=== PATIENT | male | born 1965 | race Caucasian/White ===

== ENCOUNTER 2017-04-17 10:15 | Emergency (ER) | payer MEDICAID ==
[~2017-04-17] VITALS: Ht 170.2 cm; Wt 118.8 kg
[~2017-04-17 10:15] MED LIST: Z.0.NO CURRENT MEDS
[2017-04-17 10:25] VITALS: BP 142/86; PULSE 73; RESP 16; TEMP 98.4; O2SAT 98
[2017-04-17] MEDS ORDERED: CLINDAMYCIN INJ 600 MG in SODIUM CHLORIDE 0.9% INJ 100 ML IV ONE (11:00)
[2017-04-17] MEDS ORDERED: MORPHINE SULFATE 4 MG/ML INJ IV PUSH ONE (11:00)
--- NOTE | 2017-04-17 11:06 | PD ---
HPI Chief Complaint: ENT Complaint Time Seen by Provider: 10:51 Travel History International Travel<30 days: No Contact w/Intl Traveler<30days: No Traveled to known affect area: No History of Present Illness HPI 51yo M with c/o pain and swelling in left face and around left eye for 2 days. States it started with pain in left upper tooth and then radiated to left face. States he woke up this morning and left eye seems more blurry. Denies any fever, drooling, sob, throat pain, n/v, abdominal pain. Pt states he is eating and drinking normally. Pt does not have a PMD. PFSH Past Medical History Arthritis: No Asthma: No Autoimmune Disease: No Blood Disorders: No Heart Rhythm Problems: No Cancer: No Cardiovascular Problems: No High Cholesterol: No Chemotherapy: No Chest Pain: No Congestive Heart Failure: No COPD: No Cerebrovascular Accident: No Diabetes: No Diminished Hearing: No Endocrine: No Gastrointestinal Disorders: No GERD: No Glaucoma: No Genitourinary: No Headaches: No Hepatitis: No Hiatal Hernia: No Hypertension: Yes Immune Disorder: No Implanted Vascular Access Dvce: No Kidney Stones: No Musculoskeletal: No Neurologic: No Psychiatric: No Reproductive: No Respiratory: No Migraines: No Myocardial Infarction: No Radiation Therapy: No Renal Failure: No Seizures: No Sleep Apnea: No Thyroid Disease: No Ulcer: No Tetanus Vaccination: Unknown Past Surgical History Abdominal Surgery: No AICD: No Appendectomy: No Arteriovenous Shunt: No Body Medical Devices: STEEL PLATE IN R UPPER ARM Cardiac Surgery: No Cholecystectomy: No Ear Surgery: No Endocrine Surgery: No Eye Surgery: No Genitourinary Surgery: No Gynecologic Surgery: No Insulin Pump: No Joint Replacement: No Neurologic Surgery: No Oral Surgery: No Pacemaker: Yes Thoracic Surgery: No Other Surgery: Yes Social History Alcohol Use: Yes (occ.) Tobacco Use: No Substance Use: No Allergies-Medications (Allergen,Severity, Reaction): Coded Allergies: Mushroom (Verified Allergy, Severe, HIVES,SOB, 04/17/17) Reported Meds & Prescriptions Reported Meds & Active Scripts Active No Active Prescriptions or Reported Medications Review of Systems Except as stated in HPI: all other systems reviewed are Neg Physical Exam Narrative GENERAL: 51yo M in mild distress. SKIN: Focused skin assessment warm/dry. HEAD: Atraumatic. Normocephalic. EYES: Pupils equal and round at 3mm bilaterally. EOMI. No pain with pain movement. +Edema and ttp left periorbital region. +TTP, erythema and swelling in left maxilla. ENT: Mouth: +Fractured tooth in tooth # 12 and ttp. Appeared to be chronically fractured. No apical fluctuance. No trismus. No malocclusion. Throat: Clear. NECK: Trachea midline. No JVD. CARDIOVASCULAR: Regular rate and rhythm. No murmur appreciated. RESPIRATORY: No accessory muscle use. Clear to auscultation. Breath sounds equal bilaterally. GASTROINTESTINAL: Abdomen soft, non-tender, nondistended. MUSCULOSKELETAL: No obvious deformities. No clubbing. No cyanosis. No edema. NEUROLOGICAL: Awake and alert. No obvious cranial nerve deficits. Motor grossly within normal limits. Normal speech. PSYCHIATRIC: Appropriate mood and affect; insight and judgment normal. Data Data Last Documented VS Vital Signs Date Time Temp Pulse Resp B/P Pulse Ox O2 Delivery O2 Flow Rate FiO2 04/17/17 10:25 98.4 73 16 142/86 98 Orders Complete Blood Count With Diff (04/17/17 10:57) Basic Metabolic Panel (Bmp) (04/17/17 10:57) Lactic Acid Sepsis Protocol (04/17/17 10:57) Blood Culture (04/17/17 10:57) Ct Facial Bones W Iv Contrast (04/17/17 ) Clindamycin Inj (Cleocin Inj) (04/17/17 11:00) Morphine Inj (Morphine Inj) (04/17/17 11:00) Iohexol 350 Inj (Omnipaque 350 Inj) (04/17/17 11:26) Ketorolac Inj (Toradol Inj) (04/17/17 12:45) Labs Laboratory Tests Test 04/17/17 11:10 White Blood Count 6.8 TH/MM3 Red Blood Count 4.16 MIL/MM3 Hemoglobin 12.7 GM/DL Hematocrit 37.3 % Mean Corpuscular Volume 89.9 FL Mean Corpuscular Hemoglobin 30.5 PG Mean Corpuscular Hemoglobin 33.9 % Concent Red Cell Distribution Width 12.2 % Platelet Count 196 TH/MM3 Mean Platelet Volume 7.5 FL Neutrophils (%) (Auto) 59.6 % Lymphocytes (%) (Auto) 22.7 % Monocytes (%) (Auto) 12.4 % Eosinophils (%) (Auto) 4.5 % Basophils (%) (Auto) 0.8 % Neutrophils # (Auto) 4.1 TH/MM3 Lymphocytes # (Auto) 1.5 TH/MM3 Monocytes # (Auto) 0.8 TH/MM3 Eosinophils # (Auto) 0.3 TH/MM3 Basophils # (Auto) 0.1 TH/MM3 CBC Comment DIFF FINAL Differential Comment Sodium Level 143 MEQ/L Potassium Level 4.1 MEQ/L Chloride Level 107 MEQ/L Carbon Dioxide Level 28.3 MEQ/L Anion Gap 8 MEQ/L Blood Urea Nitrogen 14 MG/DL Creatinine 0.94 MG/DL Estimat Glomerular Filtration 85 ML/MIN Rate Random Glucose 84 MG/DL Lactic Acid Level 1.1 mmol/L Calcium Level 8.5 MG/DL MDM Medical Decision Making Medical Screen Exam Complete: Yes Emergency Medical Condition: Yes Interpretation(s) Laboratory Tests Test 04/17/17 11:10 White Blood Count 6.8 TH/MM3 (4.0-11.0) Red Blood Count 4.16 MIL/MM3 (4.50-5.90) Hemoglobin 12.7 GM/DL (13.0-17.0) Hematocrit 37.3 % (39.0-51.0) Mean Corpuscular Volume 89.9 FL (80.0-100.0) Mean Corpuscular Hemoglobin 30.5 PG (27.0-34.0) Mean Corpuscular Hemoglobin 33.9 % Concent (32.0-36.0) Red Cell Distribution Width 12.2 % (11.6-17.2) Platelet Count 196 TH/MM3 (150-450) Mean Platelet Volume 7.5 FL (7.0-11.0) Neutrophils (%) (Auto) 59.6 % (16.0-70.0) Lymphocytes (%) (Auto) 22.7 % (9.0-44.0) Monocytes (%) (Auto) 12.4 % (0.0-8.0) Eosinophils (%) (Auto) 4.5 % (0.0-4.0) Basophils (%) (Auto) 0.8 % (0.0-2.0) Neutrophils # (Auto) 4.1 TH/MM3 (1.8-7.7) Lymphocytes # (Auto) 1.5 TH/MM3 (1.0-4.8) Monocytes # (Auto) 0.8 TH/MM3 (0-0.9) Eosinophils # (Auto) 0.3 TH/MM3 (0-0.4) Basophils # (Auto) 0.1 TH/MM3 (0-0.2) CBC Comment DIFF FINAL Differential Comment Sodium Level 143 MEQ/L (136-145) Potassium Level 4.1 MEQ/L (3.5-5.1) Chloride Level 107 MEQ/L (98-107) Carbon Dioxide Level 28.3 MEQ/L (21.0-32.0) Anion Gap 8 MEQ/L (5-15) Blood Urea Nitrogen 14 MG/DL (7-18) Creatinine 0.94 MG/DL (0.60-1.30) Estimat Glomerular Filtration 85 ML/MIN (>89) Rate Random Glucose 84 MG/DL (74-106) Lactic Acid Level 1.1 mmol/L (0.4-2.0) Calcium Level 8.5 MG/DL (8.5-10.1) Vital Signs Date Time Temp Pulse Resp B/P Pulse Ox O2 Delivery O2 Flow Rate FiO2 04/17/17 10:25 98.4 73 16 142/86 [address] 04/17/17 0000 Signed Impressions: Service Date/Time: Monday, April 17, 2017 11:07 - CONCLUSION: Mild left periorbital and infraorbital soft tissue swelling. The specific cause for this finding is not identified. However, the left lacrimal gland is larger than the right which could indicate dacryoadenitis. Wyatt Iraheta MD Differential Diagnosis Periorbital cellulitis vs. orbital cellulitis vs. abscess vs. sinusitis Narrative Course 51yo M with dental pain that radiated to left face and left periorbital region. Pt currently has swelling, redness and pain in left periorbital region but no pain with eye movement. Labs reviewed, no leukocytosis. Lactic acid normal at 1.1. CT facial with contrast showed mild left periorbital and infraorbital soft tissue swelling. Pt given morphine and toradol for pain. He was given clindamycin IV. Pt states pain has improved and is nontoxic appearing. Pt tolerating PO so can try outpatient treatment. Return precautions given. Diagnosis Primary Impression: Periorbital cellulitis of left eye Patient Instructions: General Instructions Departure Forms: Tests/Procedures Additional Instructions: Please follow up with your [facility] clinic in 2-3 days. Please follow up with outpatient dentist. Return to the ED if symptoms worsen. Med/Other Pt SpecificInfo: Prescription(s) given Scripts Hydrocodone-Acetaminophen (Lortab)5-325 Mg Tab1 Tab PO Q6H PRN (PAIN) #7 TAB Ref 0 Prov:Rianna Hager DO 04/17/17 Clindamycin 300 Mg [id number] Mg PO TID 10 Days Ref 0 Prov:Rianna Hager DO 04/17/17 Disposition: 01 DISCHARGE HOME Condition: Stable Rianna Hager DO Apr 17, 2017 11:05
[2017-04-17 11:20] LABS: AUTOMATED NEUTROPHIL # 4.1 TH/MM3 (1.8-7.7); BASOPHIL # 0.1 TH/MM3 (0-0.2); BASOPHIL % 0.8 % (0.0-2.0); EOSINOPHIL # 0.3 TH/MM3 (0-0.4); EOSINOPHIL % 4.5 % (0.0-4.0); HEMATOCRIT 37.3 % (39.0-51.0); HEMO FLAGS DIFF FINAL; LYMPH % 22.7 % (9.0-44.0); LYMPHOCYTE # 1.5 TH/MM3 (1.0-4.8); MEAN CELL VOLUME 89.9 FL (80.0-100.0); MEAN CORPUSCULAR HEMOGLOBIN 30.5 PG (27.0-34.0); MEAN CORPUSCULAR HGB CONC 33.9 % (32.0-36.0); MONO % 12.4 % (0.0-8.0); NEUT % 59.6 % (16.0-70.0); PLATELET COUNT 196 TH/MM3 (150-450); RED BLOOD COUNT 4.16 MIL/MM3 (4.50-5.90); RED CELL DISTRIBUTION WIDTH 12.2 % (11.6-17.2); WHITE BLOOD COUNT 6.8 TH/MM3 (4.0-11.0)
[2017-04-17] MEDS ORDERED: IOHEXOL 350 MG/ML 10 ML VIAL (for RAD DIAG) IV ONE (11:26)
[2017-04-17 11:28] LABS: POTASSIUM 4.1 MEQ/L (3.5-5.1)
[2017-04-17 11:31] LABS: BICARBONATE 28.3 MEQ/L (21.0-32.0)
--- NOTE | 2017-04-17 11:46 | RADRPT ---
EXAM DATE/TIME: 04/17/2017 11:07 [facility] COMPARISON: No previous studies available for comparison. INDICATIONS : Left periorbital and maxilla swelling and pain. IV CONTRAST: 95 cc Omnipaque 350 (iohexol) IV RADIATION DOSE: 29.96 CTDIvol (mGy) MEDICAL HISTORY : Cardiovascular disease. Hypertension. SURGICAL HISTORY : Pacemaker. ENCOUNTER: Initial ACUITY: 2 days PAIN SCALE: 5/10 LOCATION: Left facial TECHNIQUE: Volumetric scanning of the facial bones was performed. Using automated exposure control and adjustme nt of the mA and/or kV according to patient size, radiation dose was kept as low as reasonably achiev able to obtain optimal diagnostic quality images. DICOM format image data is available electronicall y for review and comparison. FINDINGS: ORBITS: The retroconal structures have a normal configuration. No radiopaque foreign bodies are seen. The le nses are normally located. There is left periorbital and infraorbital soft tissue swelling. The left lacrimal gland is larger than the right. NASAL BONE: The nasal bones and maxillary spine are intact. ZYGOMATIC ARCHES: Symmetric without evidence of fracture. SINUSES: There is minimal maxillary antral mucoperiosteal thickening bilaterally. Otherwise, the ethmoid, and frontal sinuses are clear. No air-fluid levels seen. NASAL CAVITY: The nasal septum is intact and midline. The lacrimal ducts are intact. SOFT TISSUES: No radiopaque foreign bodies seen. There is mild left periorbital and infraorbital soft tissue swelli ng. INTRACRANIAL: No acute intracranial abnormality is seen. OTHER: The mandible and pterygoid plates are intact. CONCLUSION: Mild left periorbital and infraorbital soft tissue swelling. The specific cause for this finding is n ot identified. However, the left lacrimal gland is larger than the right which could indicate dacryoa denitis. Wyatt Iraheta MD on April 17, 2017 at 11:38 Board Certified Radiologist. This report was verified electronically.
[2017-04-17] MEDS ORDERED: KETOROLAC TROMETHAMINE 30 MG/ML (IVP) VIAL IV PUSH ONE (12:45)
[2017-04-17] MEDS ORDERED: HYDR-3533 PO (12:49)
[2017-04-17] MEDS ORDERED: CLIN1CAP6 PO (12:49)
[2017-04-17 13:03] VITALS: BP 123/75
== END 2017-04-17 13:09 | disposition home or self-care (01) ==
LOC: PHED 10:15
DX: L03.213 Periorbital cellulitis (principal); I10 Essential (primary) hypertension
CPT/HCPCS: 70487; 80048; 83605; 85025; 87040; 96365; 96375; 99285; J1885; J2270; Q9967

== ENCOUNTER 2017-06-05 10:38 | Emergency (ER) | payer MEDICAID ==
[~2017-06-05] VITALS: Ht 170.2 cm; Wt 120.0 kg
[~2017-06-05 10:38] MED LIST changes: +CLIN1CAP6 PO; +HYDR-3533 PO; -Z.0.NO CURRENT MEDS
[2017-06-05 10:47] VITALS: BP 123/79; PULSE 93; RESP 18; TEMP 97.4; O2SAT 98
[2017-06-05] MEDS ORDERED: TETANUS/DIPHTHERIA TOXOID ADULT 0.5 ML VIAL IM ONE (11:15)
--- NOTE | 2017-06-05 11:19 | PD ---
HPI Chief Complaint: Fall Time Seen by Provider: 10:58 Travel History International Travel<30 days: No Contact w/Intl Traveler<30days: No Traveled to known affect area: No History of Present Illness HPI This patient complains of injuries from a fall. Duration one hour ago. He was standing on a ladder he says about 6 feet up and the ladder kicked out from underneath him and he fell. He complains of pain in the right elbow and left calf area. He's been ambulatory since. He is not having any pain in his head or neck or back or chest or abdomen. Severity of symptoms is moderate. He suffered a laceration to the left fourth finger. No alleviating factors. Pain is made worse moving his left lower leg. No LOC. PFSH Past Medical History Arthritis: No Asthma: No Autoimmune Disease: No Blood Disorders: No Heart Rhythm Problems: No Cancer: No Cardiovascular Problems: No High Cholesterol: No Chemotherapy: No Chest Pain: No Congestive Heart Failure: No COPD: No Cerebrovascular Accident: No Diabetes: No Diminished Hearing: No Endocrine: No Gastrointestinal Disorders: No GERD: No Glaucoma: No Genitourinary: No Headaches: No Hepatitis: No Hiatal Hernia: No Hypertension: Yes Immune Disorder: No Implanted Vascular Access Dvce: No Kidney Stones: No Musculoskeletal: No Neurologic: No Psychiatric: No Reproductive: No Respiratory: No Immunizations Current: Yes Migraines: No Myocardial Infarction: No Radiation Therapy: No Renal Failure: No Seizures: No Sleep Apnea: No Thyroid Disease: No Ulcer: No Tetanus Vaccination: Unknown Influenza Vaccination: No ?: Not Past Surgical History Abdominal Surgery: No AICD: No Appendectomy: No Arteriovenous Shunt: No Body Medical Devices: STEEL PLATE IN R UPPER ARM Cardiac Surgery: No Cholecystectomy: No Ear Surgery: No Endocrine Surgery: No Eye Surgery: No Genitourinary Surgery: No Gynecologic Surgery: No Insulin Pump: No Joint Replacement: No Neurologic Surgery: No Oral Surgery: No Pacemaker: Yes Thoracic Surgery: No Other Surgery: Yes Social History Alcohol Use: Yes (occ.) Tobacco Use: No Substance Use: No Allergies-Medications (Allergen,Severity, Reaction): Coded Allergies: mushroom (Unverified Allergy, Severe, HIVES,SOB, 06/05/17) Reported Meds & Prescriptions Reported Meds & Active Scripts Active No Active Prescriptions or Reported Medications Review of Systems General / Constitutional: No: Fever Eyes: No: Visual changes HENT: No: Headaches Cardiovascular: No: Chest Pain or Discomfort Respiratory: No: Shortness of Breath Gastrointestinal: No: Abdominal Pain Genitourinary: No: Dysuria Musculoskeletal: Positive: Myalgias, Pain Skin: No Rash Neurologic: No: Weakness Psychiatric: No: Depression Endocrine: No: Polydipsia Hematologic/Lymphatic: No: Easy Bruising Physical Exam Narrative GENERAL: Well-nourished, well-developed patient in no apparent distress. SKIN: Focused skin assessment reveals no rash and nodules. Skin is Warm and dry. HEAD: Atraumatic. Normocephalic. EYES: Pupils equal and round. No scleral icterus. No injection or drainage. ENT: No nasal bleeding or discharge. Mucous membranes pink and moist. NECK: Trachea midline. No JVD. No midline tenderness CARDIOVASCULAR: Regular rate and rhythm. No murmur appreciated. RESPIRATORY: No accessory muscle use. Clear to auscultation. Breath sounds equal bilaterally. GASTROINTESTINAL: Abdomen soft, obese, non-tender, nondistended. Hepatic and splenic margins not palpable. MUSCULOSKELETAL: No obvious deformities. No clubbing. No cyanosis. No edema. Patient has an abrasion and tenderness to the right elbow. There is tenderness to the left calf. No bruising or wound there. He has a laceration approximately 3 cm long to the left fourth finger near the webspace. Sensation and cap refill are intact in that finger. He has good flexion and extension strength there. NEUROLOGICAL: but no Awake and alert. No obvious cranial nerve deficits. Motor grossly within normal limits. Normal speech. PSYCHIATRIC: Appropriate mood and affect; insight and judgment normal. Data Data Last Documented VS Vital Signs Date Time Temp Pulse Resp B/P (MAP) Pulse Ox O2 Delivery O2 Flow Rate FiO2 06/05/17 10:47 97.4 93 18 123/79 (94) 98 Orders Orders Tetanus/Diphtheria Tox Adult (Tetanus/Di (06/05/17 11:15) Elbow, Complete (4 Vws) (06/05/17 ) Tibia/Fibula (Ap/Lat) (06/05/17 ) Lidocaine 1% Inj (50 Ml) (Xylocaine 1% I (06/05/17 11:30) MDM Medical Decision Making Medical Screen Exam Complete: Yes Emergency Medical Condition: Yes Medical Record Reviewed: Yes Differential Diagnosis Elbow fracture, tibia fracture, laceration Narrative Course I have reviewed the patient's electronic medical record. I reviewed his right elbow x-rays which are normal I reviewed his left tibia x-rays which are normal PA Deanne is repairing the laceration Tetanus booster given He is neurologically intact. No indication for head or neck imaging. These injuries are not considered distracting injury. He may have a muscular injury to the left calf. He should ice and elevate and rest it. Should follow-up with primary care. Diagnosis Primary Impression: Fall on and from ladder, initial encounter Additional Impressions: Multiple contusions Laceration of hand, left Qualified Codes: S61.412A - Laceration without foreign body of left hand, initial encounter Pain of left calf Additional Instructions: The patient was advised to follow up with their physician and return if they worsen. Ice and elevate left calf Med/Other Pt SpecificInfo: Other Scripts No Active Prescriptions or Reported Meds Disposition: 01 DISCHARGE HOME Condition: Stable Dima Rashid MD Jun 05, 2017 11:19
[2017-06-05] MEDS ORDERED: LIDOCAINE HCL 1% 50 ML VIAL INFIL ONE (11:30)
--- NOTE | 2017-06-05 11:54 | RADRPT ---
EXAM DATE/TIME: 06/05/2017 11:45 [facility] COMPARISON: TIBIA/FIBULA LEFT (AP/LAT), June 05, 2017, 11:43. INDICATIONS : Fall from ladder today, right elbow pain. MEDICAL HISTORY : None. SURGICAL HISTORY : None. ENCOUNTER: Initial ACUITY: 1 day PAIN SCORE: 2/10 LOCATION: Right elbow FINDINGS: Multiple view examination of the right elbow demonstrates no soft tissue swelling, joint effusion, or fracture. The osseous structures are in normal alignment. Bony mineralization is normal. CONCLUSION: 1. Negative examination. Hank Laboy MD on June 05, 2017 at 11:51 Board Certified Radiologist. This report was verified electronically.
--- NOTE | 2017-06-05 12:16 | RADRPT ---
EXAM DATE/TIME: 06/05/2017 11:43 [facility] COMPARISON: No previous studies available for comparison. INDICATIONS : Fall from ladder today, left lower leg pain. MEDICAL HISTORY : None. SURGICAL HISTORY : None. ENCOUNTER: Initial ACUITY: 1 day PAIN SCORE: 8/10 LOCATION: Left posterior tibia FINDINGS: Two view examination of the left tibia demonstrates no evidence of fracture or dislocation. Bony min eralization is normal. The soft tissue structures are intact. CONCLUSION: 1. No acute bony abnormality is identified. Hank Laboy MD on June 05, 2017 at 11:54 Board Certified Radiologist. This report was verified electronically.
--- NOTE | 2017-06-05 12:41 | PD ---
Physical Exam Time Seen by Provider: 12:10 Data Data Last Documented VS Vital Signs Date Time Temp Pulse Resp B/P (MAP) Pulse Ox O2 Delivery O2 Flow Rate FiO2 06/05/17 10:47 97.4 93 18 123/79 (94) 98 Orders Orders Tetanus/Diphtheria Tox Adult (Tetanus/Di (06/05/17 11:15) Elbow, Complete (4 Vws) (06/05/17 ) Tibia/Fibula (Ap/Lat) (06/05/17 ) Lidocaine 1% Inj (50 Ml) (Xylocaine 1% I (06/05/17 11:30) MDM Medical Record Reviewed: Yes Supervised Visit with PRADEEP: Yes Narrative Course I was asked to provide Dr. Rashid to repair a laceration on this patient. Please see his note for further details. Procedures Procedure Narrative LACERATION LOCATION: left hand between the 3rd and 4th fingers LENGTH: 2 cm NUMBER OF STITCHES/MAGI: 7 simple interrupted REPAIR: The area of the laceration was prepped with Betadine and sterilely draped. The laceration was infiltrated with 1% lidocaine. The wound was copiously irrigated and explored without evidence of foreign body, tendon injury or neurovascular injury. The wound was closed using 5-0 Prolene. This was a single layer repair. A sterile dressing was applied. The patient was advised to keep the dressing clean and dry. Patient tolerated the procedure well. Additional Instruction: Triple antibiotic ointment daily. Sutures out in 7-10 days. Scripts No Active Prescriptions or Reported Meds Condition: Deanne Hill Jun 05, 2017 12:41
[2017-06-05 12:49] VITALS: BP 140/73; PULSE 98; RESP 18; O2SAT 99
== END 2017-06-05 12:57 | disposition home or self-care (01) ==
LOC: PHED 10:38
DX: T14.8 Other injury of unspecified body region (principal); S61.215A Laceration without foreign body of left ring finger without damage to nail, initial encounter; Z23 Encounter for immunization; W11.XXXA Fall on and from ladder, initial encounter
CPT/HCPCS: 12001; 73080; 73590; 90471; 90714